=== PATIENT | male | born 1955 | race Two or more races ===

== ENCOUNTER → 2016-12-01 | Outpatient (CLI) | payer MEDICAID ==
[~2016-12-01] MED LIST: ASPI-825 PO; NOCURR
== END | disposition home or self-care (01) ==
LOC: RADPV 09:00
PROVIDERS: ATTEND Internal Medicine Cardiovascular Disease
DX: I35.8 Other nonrheumatic aortic valve disorders (principal)
CPT/HCPCS: 93306